=== PATIENT | female | born 1980 | race Caucasian/White ===

== ENCOUNTER 2021-04-30 11:02 | Emergency (ER) | payer BC ==
[2021-04-30] MEDS ORDERED: Orphenadrine Citrate 60 MG/2 ML VIAL ONE (12:26)
== END 2021-04-30 12:48 | disposition home or self-care (01) ==
LOC: MADERS 11:02
DX: M54.50 Low back pain, unspecified (principal); F17.210 Nicotine dependence, cigarettes, uncomplicated
CPT/HCPCS: 96372; 99283; J2360

== ENCOUNTER 2021-08-15 10:16 | Emergency (ER) | payer BC ==
[2021-08-15] MEDS ORDERED: Doxycycline 100 MG CAP ONE (11:04)
== END 2021-08-15 11:15 | disposition home or self-care (01) ==
LOC: MADERS 10:16
DX: S61.051A Open bite of right thumb without damage to nail, initial encounter (principal); S60.413A Abrasion of left middle finger, initial encounter; F17.210 Nicotine dependence, cigarettes, uncomplicated; W55.01XA Bitten by cat, initial encounter

== ENCOUNTER 2022-08-04 12:20 | Emergency (ER) | payer BC, OTHER | END 2022-08-04 13:29 | disposition home or self-care (01) | LOC: MADERS 12:20 | DX: H66.91 Otitis media, unspecified, right ear (principal); H60.91 Unspecified otitis externa, right ear; F17.210 Nicotine dependence, cigarettes, uncomplicated | CPT/HCPCS: 99282 ==